=== PATIENT | female | born 1960 | race Two or more races ===

== ENCOUNTER 2024-07-25 04:22 | Day surgery (SDC) | payer OTHER, BC ==
[2024-07-20 14:57] VITALS: BMI 21.7
[2024-07-25] MEDS ORDERED: LIDOCAINE HCL 1%, 10 MG/ML (20ML VIAL) ONE (07:07)
[2024-07-25] MEDS ORDERED: PROPOFOL 20 ML ONE ×4 (07:48→09:12)
[2024-07-25] MEDS ORDERED: MIDAZOLAM HCL 2 MG/2 ML SINGLE DOSE VIAL ONE (07:48)
[2024-07-25] MEDS ORDERED: SUCCINYLCHOLINE CHLORIDE 200 MG/10 ML SYRINGE ONE (07:48)
[2024-07-25] MEDS: ceFAZolin SODIUM 1 GM VIAL IVPB ONE (08:25)
[2024-07-25] MEDS: LIDOCAINE HCL 1%, 10 MG/ML (20ML VIAL) NR ONE ×2 (08:35)
[2024-07-25] MEDS ORDERED: ONDANSETRON 4 MG/2 ML VIAL IVPUSH PRN (09:35)
[2024-07-25] MEDS ORDERED: oxyCODONE HCL 5 MG TABLET PO PRN (09:35)
[2024-07-25] MEDS ORDERED: LACTATED RINGERS SOLUTION 1,000 ML IV SCH (09:45)
[2024-07-25 11:45] VITALS: BP 126/91; PULSE 73; RESP 17; TEMP 97.7
== END 2024-07-25 12:32 | disposition home or self-care (01) ==
LOC: JASU-SURG 04:22
PROVIDERS: ATTEND Plastic Surgery
PROC: 0JB60ZZ Excision of Chest Subcutaneous Tissue and Fascia, Open Approach (ICD-10-PCS; principal; 2024-07-25 08:00)
DX: S21.001A Unspecified open wound of right breast, initial encounter (principal); X58.XXXA Exposure to other specified factors, initial encounter; Y93.9 Activity, unspecified; Y92.9 Unspecified place or not applicable
CPT/HCPCS: 88305-TC; 94760

== ENCOUNTER 2025-03-05 06:15 | Day surgery (SDC) | payer OTHER, BC ==
[2025-03-01 10:39] VITALS: BMI 22.1
[2025-03-05] MEDS ORDERED: PROPOFOL 20 ML ONE (08:39)
[2025-03-05] MEDS ORDERED: LIDOCAINE HCL/PF 2% SDV 5ML VIAL ONE (08:39)
[2025-03-05] MEDS ORDERED: MIDAZOLAM HCL 2 MG/2 ML SINGLE DOSE VIAL ONE (08:39)
[2025-03-05] MEDS: ceFAZolin SODIUM 1 GM VIAL IVPB ONE (10:25)
[2025-03-05] MEDS ORDERED: ceFAZolin SODIUM 1 GM VIAL ONE (10:27)
[2025-03-05] MEDS ORDERED: DEXAMETHASONE SOD PHOSPHATE 4 MG/1 ML VIAL ONE (10:27)
[2025-03-05] MEDS ORDERED: BUPIVACAINE HCL/PF 0.25% (2.5MG/ML) 10 ML VIAL ONE (10:49)
[2025-03-05] MEDS ORDERED: oxyCODONE HCL 5 MG TABLET PO PRN ×2 (10:59)
[2025-03-05] MEDS ORDERED: PROMETHAZINE HCL 25 MG/1 ML VIAL IVPB PRN (10:59)
[2025-03-05] MEDS ORDERED: LACTATED RINGERS SOLUTION 1,000 ML IV SCH (11:00)
[2025-03-05] MEDS: BUPIVACAINE HCL/PF 2.5 MG/ML - 30 ML VIAL IJ ONE ×2 (11:19)
[2025-03-05] MEDS ORDERED: ONDANSETRON 4 MG/2 ML VIAL ONE ×2 (11:49→12:21)
[2025-03-05] MEDS ORDERED: NALOXONE HCL 0.4 MG/ML VIAL ONE (12:00)
[2025-03-05] MEDS ORDERED: ACETAMINOPHEN INJECTION 100 ML ONE (12:15)
[2025-03-05] MEDS: ACETAMINOPHEN 1000 MG/100 ML BAG IVPB ONE (12:23)
[2025-03-05] MEDS: ONDANSETRON 4 MG/2 ML VIAL IVPUSH PRN (12:48)
[2025-03-05] MEDS ORDERED: diazePAM 5 MG TABLET ONE (12:58)
[2025-03-05] MEDS: diazePAM 5 MG TABLET PO ONE (13:08)
[2025-03-05 14:18] VITALS: RESP 18
[2025-03-05 14:38] VITALS: BP 128/92; PULSE 79; TEMP 97.5
== END 2025-03-05 14:41 | disposition home or self-care (01) ==
LOC: JASU-SURG 06:15
PROVIDERS: ATTEND Plastic Surgery
PROC: 0HHT0NZ Insertion of Tissue Expander into Right Breast, Open Approach (ICD-10-PCS; principal; 2025-03-05 09:00)
DX: T85.44XA Capsular contracture of breast implant, initial encounter (principal)
CPT/HCPCS: 88304-TC; 94760; C1789; J0131

== ENCOUNTER 2025-07-26 08:40 | Day surgery (SDC) | payer OTHER, BC ==
[2025-07-23 16:05] VITALS: BMI 24.2
[2025-07-26] MEDS ORDERED: BUPIVACAINE HCL/PF 0.5% (5MG/ML) 10 ML VIAL ONE (10:27)
[2025-07-26] MEDS ORDERED: MIDAZOLAM HCL 2 MG/2 ML SINGLE DOSE VIAL ONE (12:28)
[2025-07-26] MEDS ORDERED: PROPOFOL 20 ML ONE (12:28)
[2025-07-26] MEDS ORDERED: ACETAMINOPHEN INJECTION 100 ML ONE (13:13)
[2025-07-26] MEDS ORDERED: FENTANYL CITRATE/PF 50 MCG/ML VIAL ONE ×2 (13:53→14:07)
[2025-07-26] MEDS ORDERED: LACTATED RINGERS SOLUTION 1,000 ML IV SCH (14:00)
[2025-07-26] MEDS: ONDANSETRON 4 MG/2 ML VIAL IVPUSH PRN (14:01)
[2025-07-26 14:50] VITALS: TEMP 97.3
[2025-07-26 15:20] VITALS: RESP 13
[2025-07-26 15:24] VITALS: BP 147/94; PULSE 78
== END 2025-07-26 15:23 | disposition home or self-care (01) ==
LOC: FASU 08:40
PROVIDERS: ATTEND Plastic Surgery
PROC: 0HPT0NZ Removal of Tissue Expander from Right Breast, Open Approach (ICD-10-PCS; principal; 2025-07-26 13:00)
DX: N65.1 Disproportion of reconstructed breast (principal)
CPT/HCPCS: 88300-TC; 88304-TC; 94760; C1789

== ENCOUNTER 2025-09-06 08:46 | Day surgery (SDC) | payer OTHER, BC ==
[2025-09-03 14:49] VITALS: BMI 24.2
[2025-09-06] MEDS ORDERED: BUPIVACAINE HCL/PF 2.5 MG/ML - 30 ML VIAL IJ ONE (09:27)
[2025-09-06] MEDS ORDERED: PROPOFOL 20 ML ONE (09:57)
[2025-09-06] MEDS ORDERED: SUCCINYLCHOLINE CHLORIDE 200 MG/10 ML SYRINGE ONE (09:57)
[2025-09-06] MEDS ORDERED: MIDAZOLAM HCL 2 MG/2 ML SINGLE DOSE VIAL ONE (09:57)
[2025-09-06] MEDS ORDERED: ONDANSETRON 4 MG/2 ML VIAL IVPUSH PRN (11:59)
[2025-09-06] MEDS ORDERED: LACTATED RINGERS SOLUTION 1,000 ML IV SCH (12:00)
[2025-09-06] MEDS ORDERED: FENTANYL CITRATE/PF 50 MCG/ML VIAL ONE (12:06)
[2025-09-06 13:08] VITALS: RESP 19; TEMP 97.4
[2025-09-06 13:11] VITALS: BP 114/78; PULSE 82
== END 2025-09-06 13:05 | disposition home or self-care (01) ==
LOC: FASU 08:46
PROVIDERS: ATTEND Plastic Surgery
PROC: 0HPT0JZ Removal of Synthetic Substitute from Right Breast, Open Approach (ICD-10-PCS; principal; 2025-09-06 10:16)
PROC: 0HRT0JZ Replacement of Right Breast with Synthetic Substitute, Open Approach (ICD-10-PCS; 2025-09-06 10:16)
DX: T85.848A Pain due to other internal prosthetic devices, implants and grafts, initial encounter (principal); T85.49XA Other mechanical complication of breast prosthesis and implant, initial encounter; N65.1 Disproportion of reconstructed breast; Z98.82 Breast implant status; G89.18 Other acute postprocedural pain; Y81.2 Prosthetic and other implants, materials and accessory general- and plastic-surgery devices associated with adverse incidents; Y92.89 Other specified places as the place of occurrence of the external cause
CPT/HCPCS: 15777; 19342; 19380; L8600; 88300-TC; 94760; C1789; Q4116